=== PATIENT | male | born 1975 | race Two or more races ===

== ENCOUNTER 2024-10-09 04:50 | Inpatient (IN) | payer BC ==
[~2024-10-09] VITALS: Ht 175.3 cm; Wt 106.0 kg
[2024-10-09 05:30] LABS: Urine Bacteria None Seen /hpf (None Seen)
[2024-10-09 05:35] LABS: Urine Blood 1+ /uL (Negative); Urine Clarity Clear (Clear); Urine Color Light-Yellow (Yellow); Urine Protein, UAD TRACE (Negative); Urine Specific Gravity 1.023 (1.001-1.035); Urine Urobilinogen Normal (Negative); Urine WBC 1 /hpf (0 - 3)
[2024-10-09 06:51] LABS: Alanine Aminotransferase 38 U/L (7-40); Albumin 4.5 g/dL (3.2-4.8); Alkaline Phosphatase 108 U/L (46-116); Aspartate Aminotransferase 23 U/L (13-40); BUN/Creatinine Ratio 9.4 (10.0-20.0); Blood Urea Nitrogen 15 mg/dL (9-23); Calcium 9.8 mg/dL (8.7-10.4); Chloride 105 mmol/L (98-107); Glucose 146 mg/dL (74-106); Lipase 41 U/L (12-53); Potassium 3.8 mmol/L (3.5-5.1); Sodium 141 mmol/L (136-145)
[2024-10-09 06:52] LABS: Bilirubin, Total 0.7 mg/dL (0.2-1.0); Total Protein 7.2 g/dL (5.7-8.2)
[2024-10-09 07:02] LABS: Basophils # (auto) 0 10 ^3/uL (0-0.2); Basophils % (auto) 0.2 % (0.0-2.0); Eosinophils # (auto) 0 10 ^3/uL (0-0.8); Eosinophils % (auto) 0.1 % (0.0-7.0); Hematocrit 42.4 % (41.0-53.0); Hemoglobin 14.7 g/dL (13.5-17.5); Lymphocytes # (auto) 0.9 10 ^3/uL (0.4-5.4); Lymphocytes % (auto) 6.8 % (10.0-50.0); Mean Corpuscular Hemoglobin 31.7 pg (28.0-32.0); Mean Corpuscular Hgb Conc. 34.7 g/dL (32.0-36.0); Mean Corpuscular Volume 91.5 fL (80.0-100.0); Monocytes # (auto) 0.5 10 ^3/uL (0-1.3); Monocytes % (auto) 3.7 % (0.0-12.0); Neutrophils # (auto) 11.6 10 ^3/uL (1.6-8.6); Neutrophils % (auto) 89.2 % (37.0-80.0); Nucleated Red Blood Cells % 0.1 %; Platelet Count (auto) 275 10^3/uL (140-450); Red Blood Cells 4.64 10^6/uL (4.5-5.90); Red Cell Distribution Width 13.5 % (11.8-14.3)
--- NOTE | 2024-10-09 07:19 | ED.PDOC ---
GI ASSESSMENT HPI Comments 49-year-old male presents with a chief complaint of abdominal pain x onset yesterday. Patient states that his abdominal pain is localized to his LLQ, radiates across his abdomen to his right side and testicle area, describes as sharp/cramping, and rates his pain a 8/10. Patient denies any nausea, vomiting, or diarrhea with his abdominal pain. Patient denies any rectal bleeding as well. Patient mentions that he took some Pepto Bismol and had some relief of symptoms. Patient denies any urinary symptoms at this time. Chief Complaint: Abdominal Pain Time Seen by MD: 06:43 Reviewed Notes: Medications, Allergies Allergies: Coded Allergies: NO KNOWN ALLERGIES (Unverified , 10/09/24) Information Source: Patient Mode of Arrival: Ambulatory Timing: Hours Duration: Since onset Prehospital treatment: None Quality: Cramping Vomitus: None Stool: Normal Severity: Moderate Recent: None Recent Hx of: None Pain Location: Diffuse, LLQ Past Medical History PAST MEDICAL HISTORY: DM Surgical History: Denies all surgeries Family History Family History: Reviewed,noncontributory to illness Social History Smoker: Non-Smoker Alcohol: Denies ETOH Use Drugs: Denies Drug Use Lives In: Home Constitutional: denies: chills, diaphoresis, fatigue, fever, malaise, sweats, weakness, others EENTM: denies: blurred vision, double vision, ear bleeding, ear discharge, ear drainage, ear pain, ear ringing, eye pain, eye redness, hearing loss, mouth pain, mouth swelling, nasal discharge, nose bleeding, nose congestion, nose pain, photophobia, tearing, throat pain, throat swelling, voice changes, others Respiratory: denies: cough, hemoptysis, orthopnea, SOB at rest, shortness of breath, SOB with excertion, stridor, wheezing, others Cardiovascular: denies: chest pain, dizzy spells, diaphoresis, Dyspnea on exertion, edema, irregular heart beat, left arm pain, lightheadedness, palpitations, PND, syncope, others Gastrointestinal: reports: abdominal pain; denies: abdomen distended, blood streaked bowels, constipated, diarrhea, dysphagia, difficulty swallowing, hematemesis, melena, nausea, poor appetite, poor fluid intake, rectal bleeding, rectal pain, vomiting, others Genitourinary: denies: burning, dysuria, flank pain, frequency, hematuria, incontinence, penile discharge, penile sore, pain, testicle pain, testicle swelling, urgency, others Neurological: denies: dizziness, fainting, headache, left sided numbness, left sided weakness, numbness, paresthesia, pre-existing deficit, right sided numbness, right sided weakness, seizure, speech problems, tingling, tremors, weakness, others Musculoskeletal: denies: back pain, gout, joint pain, joint swelling, muscle pain, muscle stiffness, neck pain, others Integumetry: denies: bruises, change in color, change in hair/nails, dryness, laceration, lesions, lumps, rash, wounds, others Allergic/Immunocompromised: denies: Difficulty Healing, Frequent Infections, Hives, Itching, others Hematologic/Lymphatic: denies: anemia, blood clots, easy bleeding, easy bruising, swollen glands, others Endocrine: denies: excessive hunger, excessive sweating, excessive thirst, excessive urination, flushing, intolerance to cold, intolerance to heat, unexplained weight gain, unexplained weight loss, others Psychiatric: denies: anxiety, bipolar disorder, depression, hopeless, panic disorder, schizophrenia, sleepless, suicidal, others All Other Systems: Reviewed and Negative Physical Exam General Appearance: No Apparent Distress, Normal HEENT: Normal ENT Inspection, Pharynx Normal, TMs Normal Neck: Full Range of Motion, Non-Tender, Normal, Normal Inspection Respiratory: Chest Non-Tender, Lungs Clear, No Accessory Muscle Use, No Respiratory Distress, Normal Breath Sounds Cardiovascular: No Edema, No JVD, No Murmur, No Gallop, Normal Peripheral Pulses, Regular Rate/Rhythm Breast Exam: Deferred Gastrointestinal: No Organomegaly, Non Tender, No Pulsatile Mass, Normal Bowel Sounds, Soft Genitalia: Deferred Pelvic: Deferred Rectal: Deferred Extremities: No calf tenderness, Normal capillary refill, Normal inspection, Normal range of motion, Non-tender, No pedal edema Musculoskeletal : Apperance: Normal Neurologic: Alert, department of soci[employer] chair II-XII nml as Tested, No Motor Deficits, Normal Affect, Normal Mood, No Sensory Deficits Cerebellar Function: Normal Reflexes: Normal Skin: Dry, Normal Color, Warm Lymphatic: No Adenopathy Was a procedure done? Was a procedure done?: No GI differential Dx Differential Diagnosis: Cholecystitis, Gastritis/PUD, Gastroenteritis, Hepatitis, Inflammatory BD, UTI, Urolithiasis, Dehydration, Diabetes/ DKA, Electrolyte Imbalance, Viral, Hypovolemia, Malnutrition, Anemia X-Ray, Labs, Meds, VS Vital Signs Date Time Temp Pulse Resp B/P (MAP) Pulse Ox O2 Delivery O2 Flow Rate FiO2 10/09/24 07:36 70 17 155/64 10/09/24 07:20 17 96 Room Air* 0 21 10/09/24 07:20 98.3 70 17 153/88 (109) 96 98.3 10/09/24 04:50 98.1 70 18 154/91 (112) 100 Lab Test 10/09/24 05:45 10/09/24 05:00 Range/Units White Blood Count 13.0 H 4.4-10.8 10^3/uL Red Blood Count 4.64 4.5-5.90 10^6/uL Hemoglobin 14.7 13.5-17.5 g/dL Hematocrit 42.4 41.0-53.0 % Mean Corpuscular Volume 91.5 80.0-100.0 fL Mean Corpuscular Hemoglobin 31.7 28.0-32.0 pg Mean Corpuscular Hemoglobin Concent 34.7 32.0-36.0 g/dL Red Cell Distribution Width 13.5 11.8-14.3 % Platelet Count 275 140-450 10^3/uL Mean Platelet Volume 8.7 6.9-10.8 fL Neutrophils (%) (Auto) 89.2 H 37.0-80.0 % Lymphocytes (%) (Auto) 6.8 L 10.0-50.0 % Monocytes (%) (Auto) 3.7 0.0-12.0 % Eosinophils (%) (Auto) 0.1 0.0-7.0 % Basophils (%) (Auto) 0.2 0.0-2.0 % Neutrophils # (Auto) 11.6 H 1.6-8.6 10 ^3/uL Lymphocytes # (Auto) 0.9 0.4-5.4 10 ^3/uL Monocytes # (Auto) 0.5 0-1.3 10 ^3/uL Eosinophils # (Auto) 0 0-0.8 10 ^3/uL Basophils # (Auto) 0 0-0.2 10 ^3/uL Nucleated Red Blood Cells 0.1 % Sodium Level 141 136-145 mmol/L Potassium Level 3.8 3.5-5.1 mmol/L Chloride Level 105 98-107 mmol/L Carbon Dioxide Level 26 20-31 mmol/L Anion Gap 10 5-15 Blood Urea Nitrogen 15 9-23 mg/dL Creatinine 1.60 H 0.700-1.30 mg/dL Glomerular Filtration Rate Calc 53 >90 mL/min BUN/Creatinine Ratio 9.4 L 10.0-20.0 Serum Glucose 146 H 74-106 mg/dL Calcium Level 9.8 8.7-10.4 mg/dL Total Bilirubin 0.7 0.2-1.0 mg/dL Aspartate Amino Transferase (AST) 23 13-40 U/L Alanine Aminotransferase (ALT) 38 7-40 U/L Alkaline Phosphatase 108 46-116 U/L Total Protein 7.2 5.7-8.2 g/dL Albumin 4.5 3.2-4.8 g/dL Lipase 41 12-53 U/L Urine Color Light-yellow Yellow Urine Clarity Clear Clear Urine pH 6.0 5.0-9.0 Urine Specific [place] 1.023 1.001-1.035 Urine Protein Trace H Negative Urine Ketones Negative Negative Urine Blood 1+ H Negative /uL Urine Nitrite Negative Negative Urine Bilirubin Negative Negative Urine Urobilinogen Normal Negative mg/dL Urine Leukocyte Esterase Negative Negative /uL Urine RBC 22 0 - 3 /hpf Urine WBC 1 0 - 3 /hpf Urine Squamous Epithelial Cells Few <5 /hpf Urine Bacteria None seen None Seen /hpf Urine Glucose Normal Normal mg/dL Current Medications Medications (Trade) Dose Ordered Sig/Thania Route Start Time Stop Time Status Last Admin Sodium Chloride 1,000 ml @ 1,000 mls/hr Q1H ONCE IV 10/09/24 07:00 10/09/24 07:59 DC 10/09/24 07:37 Ondansetron HCl (Zofran) 4 mg ONCE ONCE IV 10/09/24 07:00 10/09/24 07:01 DC 10/09/24 07:35 Tamsulosin HCl (Flomax) 0.4 mg ONCE ONCE PO 10/09/24 07:00 10/09/24 07:01 DC 10/09/24 08:01 Morphine Sulfate 4 mg ONCE ONCE IV 10/09/24 07:00 10/09/24 07:01 DC 10/09/24 07:36 Time of 1ST Reevaluation: 07:13 Reevaluation 1ST: Unchanged Patient Education/Counseling: Diagnosis, Treatment, Prognosis Family Education/Counseling: No Family Present Departure 1 Departure Time of Disposition: 08:08 (Patient presented with abdominal pain that was concerning for possible appendicits, gastritis, cholecystitis, colitis, gastroenteritis, sbo, or orther possible surgical emergency. Data: 1. I ordered and reviewed the result of at least 3 labs including a CBC, BMP, and Urinalysis. 2. I independently interpreted the following tests: CT Abdoment and Pelvis is concerning for obstructing renal colic with hydronephrosis .Risk:This patient has a high risk of morbidity due to further diagnostic testing or treatment and may suffer from an acute abdominal process disorder. Workup reveals Moderate left hydronephrosis with obstructing 4 mm calculus of the proximal left ureter and intractable abdominal pain and patient should be admitted for further workup. and possible expert consultation. ) Impression: Primary Impression: Renal colic on left side Additional Impressions: Hydronephrosis due to obstruction of ureter Intractable abdominal pain Disposition: 09 ADMITTED INPATIENT Admit to: Med Surg Condition: Serious Critical Care Note Critical Care Time?: Yes Critical care comment: Intractable abdominal pain Authorized and Performed by: Dale Giles MD Total critical care time: Approximately 33 minutes Due to a high probability of clinically significant, life threatening deterioration, the patient required my highest level of preparedness to intervene emergently and I personally spent this critical care time directly and personally managing the patient. This critical care time included obtaining a history; examining the patient; pulse oximetry; ordering and review of studies; arranging urgent treatment with development of a management plan; evaluation of patient's response to treatment; frequent reassessment; and, discussions with other providers. This critical care time was performed to assess and manage the high probability of imminent, life-threatening deterioration that could result in multi-organ failure. It was exclusive of separately billable procedures and treating other patients and teaching time. Please see my other sections and the rest of the note for further information on patient assessment and treatment. Stability Stability form required: No I personally scribed for DALE GILES MD ([email or web address]) on 10/09/24 at 07:19. Electronically submitted by Clint Vaughan ([email or web address]). DALE GILES MD Oct 09, 2024 07:19
[2024-10-09 07:20] VITALS: RESP 17; O2SAT 96
[2024-10-09] MEDS: ONDANSETRON HCL 4 MG/2 ML VIAL IV ONE (07:35)
[2024-10-09] MEDS: MORPHINE SULFATE 4 MG/ML SYR/VIAL IV ONE (07:36)
[2024-10-09] MEDS: TAMSULOSIN HYDROCHLORIDE 0.4 MG CAP PO ONE (07:36)
[2024-10-09] MEDS: SODIUM CHLORIDE 0.9% 1,000 ML IV ONE (07:37)
[2024-10-09 07:50] LABS: Anion Gap 10 (5-15); Carbon Dioxide 26 mmol/L (20-31)
--- NOTE | 2024-10-09 07:58 | DVH ---
CLINICAL INFORMATION: 49 years old, Male; left flank pain. TECHNIQUE: Axial CT images of the abdomen and pelvis were obtained without IV contrast. Coronal and sagittal reformatted images were obtained, reviewed, and stored. Evaluation of the parenchymal organs is limited without IV contrast. Evaluation of the bowel and mesentery is limited without oral contra st. All CT scans at this medical facility are performed using dose modulation techniques as appropria te to a performed exam including the following: Automated exposure control was utilized; adjustment o f the MA and/or KV according to patient size; and use of iterative reconstruction technique. CTDIvol = 16.04 mGy DLP = 1052.66 mGy-cm COMPARISON: None FINDINGS: Lung bases: Respiratory motion artifact limits evaluation. Mild atelectasis in the lung bases. Liver: Hepatic steatosis with areas of focal fatty sparing. Biliary: No calcified gallstones or biliary ductal dilatation. Spleen: Unremarkable. Pancreas: Grossly unremarkable in its noncontrast enhanced appearance. Adrenal glands: Unremarkable. No mass. Kidneys: Moderate left hydronephrosis and moderate left perinephric stranding, with obstructing 4 mm calculus in the proximal left ureter. No other renal or ureteral calculi visualized. Aorta/Vascular: No aneurysm or significant calcification. Retroperitoneum: No mass or lymphadenopathy. Bowel/mesentery: Nonspecific nondilated fluid-filled small bowel loops. No small bowel obstruction. A ppendix is visualized and appears unremarkable. Scattered colonic diverticula without adjacent infl ammatory changes to suggest diverticulitis. Pelvic organs: Grossly unremarkable. Bladder: Bladder is underdistended and not well evaluated. Abdominal wall: Moderate sized fat containing indirect left inguinal hernia. Bones: No acute fracture or suspicious intraosseous lesion. IMPRESSION: 1. Moderate left hydronephrosis with obstructing 4 mm calculus of the proximal left ureter. 2. No other renal or ureteral calculi are seen. 3. Nonspecific nondilated fluid-filled small bowel loops, may be seen with ileus or enteritis in the appropriate clinical setting. No small bowel obstruction. 4. Hepatic steatosis. 5. Moderate-sized fat containing indirect left inguinal hernia. 6. Additional findings as detailed above
[2024-10-09] MEDS: KETOROLAC TROMETH 30 MG/ML 1ML VIAL IV ONE (08:15)
--- NOTE | 2024-10-09 08:39 | DVHHP2 ---
History of Present Illness Reason for Visit: Abdominal pain History of Present Illness Justin De La Cruz is a 49YO M with a pmHx of DM who presents to the ED with abdominal and testicular pain x 1 day. Upon examination patient reports pain is in the LLQ which radiates to the epigastric area. Current pain reported after pain medications is 5/10. Patient also reports that he was unable to have a bowel movement due to the pain for 1 day. He reports he is compliant with his medications. Patient denies N/V/D, fever, chills, and shortness of breath. Endocrine: Diabetes Past Surgical History: Other Past Surgical History Right inguinal hernia repair Family History: DM (both mother and father) Smoke: No ALCOHOL: none Drugs: None Lives: with Family Domestic Violence: Neg Review of Systems Constitutional: No: Fever, Chills, Sweats, Weakness, Malaise, Other Eyes: No: Pain, Vision change, Conjunctivae inflammation, Eyelid inflammation, Other, Redness ENT: No: Ear pain, Ear discharge, Nose pain, Nose discharge, Nose congestion, Mouth pain, Mouth swelling, Throat pain, Throat swelling, Other Respiratory: No: Cough, Dry, Shortness of breath, SOB with excertion, Wheezing, Hemoptysis, Pleuritic Pain, Sputum, Wheezing, Other Cardiovascular: No: Chest Pain, Palpitations, Orthopnea, Paroxysmal Noc. Dyspnea, Edema, Lt Headedness, Other Gastrointestinal: Abdominal Pain; No: Nausea, Vomiting, Diarrhea, Constipation, Melena, Hematochezia, Other Genitourinary: No Dysuria, No Frequency, No Incontinence, No Hematuria, No Retention, No Other Musculoskeletal: No: other, neck pain, shoulder pain, arm pain, back pain, hand pain, leg pain, foot pain Skin: No: Rash, Lesions, Jaundice, Bruising, Other Neurological: No: Weakness, Numbness, Incoordination, Change in speech, Confusion, Seizures, Other Other testicular pain Allergies: Coded Allergies: NO KNOWN ALLERGIES (Unverified , 10/09/24) Exam Vital Signs Vital Signs Date Time Temp Pulse Resp B/P (MAP) Pulse Ox O2 Delivery O2 Flow Rate FiO2 10/09/24 08:06 69 18 150/61 10/09/24 07:20 96 Room Air* 0 21 10/09/24 07:20 98.3 98.3 General Appearance: Alert, Oriented X3, Cooperative, No acute distress HEENT: Atraumatic, PERRLA, EOMI, Mucous membr. moist/pink Respiratory: Clear to auscultation, Normal air movement Cardiovascular: Regular rate, Normal S1, Normal S2, No murmurs Abdominal: Soft Extremities: No clubbing, No cyanosis, No edema, Normal pulses, No tenderness/swelling Skin: No rashes, No breakdown, No significant lesion Neuro: Normal gait, Normal speech, Strength at 5/5 X4 ext, Normal tone, Sensation intact Psych/Mental Status: Mental status NL, Mood NL Labs/Xrays Labs Test 10/09/24 05:45 10/09/24 05:00 Range/Units White Blood Count 13.0 H 4.4-10.8 10^3/uL Red Blood Count 4.64 4.5-5.90 10^6/uL Hemoglobin 14.7 13.5-17.5 g/dL Hematocrit 42.4 41.0-53.0 % Mean Corpuscular Volume 91.5 80.0-100.0 fL Mean Corpuscular Hemoglobin 31.7 28.0-32.0 pg Mean Corpuscular Hemoglobin Concent 34.7 32.0-36.0 g/dL Red Cell Distribution Width 13.5 11.8-14.3 % Platelet Count 275 140-450 10^3/uL Mean Platelet Volume 8.7 6.9-10.8 fL Neutrophils (%) (Auto) 89.2 H 37.0-80.0 % Lymphocytes (%) (Auto) 6.8 L 10.0-50.0 % Monocytes (%) (Auto) 3.7 0.0-12.0 % Eosinophils (%) (Auto) 0.1 0.0-7.0 % Basophils (%) (Auto) 0.2 0.0-2.0 % Neutrophils # (Auto) 11.6 H 1.6-8.6 10 ^3/uL Lymphocytes # (Auto) 0.9 0.4-5.4 10 ^3/uL Monocytes # (Auto) 0.5 0-1.3 10 ^3/uL Eosinophils # (Auto) 0 0-0.8 10 ^3/uL Basophils # (Auto) 0 0-0.2 10 ^3/uL Nucleated Red Blood Cells 0.1 % Sodium Level 141 136-145 mmol/L Potassium Level 3.8 3.5-5.1 mmol/L Chloride Level 105 98-107 mmol/L Carbon Dioxide Level 26 20-31 mmol/L Anion Gap 10 5-15 Blood Urea Nitrogen 15 9-23 mg/dL Creatinine 1.60 H 0.700-1.30 mg/dL Glomerular Filtration Rate Calc 53 >90 mL/min BUN/Creatinine Ratio 9.4 L 10.0-20.0 Serum Glucose 146 H 74-106 mg/dL Calcium Level 9.8 8.7-10.4 mg/dL Total Bilirubin 0.7 0.2-1.0 mg/dL Aspartate Amino Transferase (AST) 23 13-40 U/L Alanine Aminotransferase (ALT) 38 7-40 U/L Alkaline Phosphatase 108 46-116 U/L Total Protein 7.2 5.7-8.2 g/dL Albumin 4.5 3.2-4.8 g/dL Lipase 41 12-53 U/L Urine Color Light-yellow Yellow Urine Clarity Clear Clear Urine pH 6.0 5.0-9.0 Urine Specific [place] 1.023 1.001-1.035 Urine Protein Trace H Negative Urine Ketones Negative Negative Urine Blood 1+ H Negative /uL Urine Nitrite Negative Negative Urine Bilirubin Negative Negative Urine Urobilinogen Normal Negative mg/dL Urine Leukocyte Esterase Negative Negative /uL Urine RBC 22 0 - 3 /hpf Urine WBC 1 0 - 3 /hpf Urine Squamous Epithelial Cells Few <5 /hpf Urine Bacteria None seen None Seen /hpf Urine Glucose Normal Normal mg/dL CT Abdomen and Pelvis FINDINGS: Lung bases: Respiratory motion artifact limits evaluation. Mild atelectasis in the lung bases. Liver: Hepatic steatosis with areas of focal fatty sparing. Biliary: No calcified gallstones or biliary ductal dilatation. Spleen: Unremarkable. Pancreas: Grossly unremarkable in its noncontrast enhanced appearance. Adrenal glands: Unremarkable. No mass. Kidneys: Moderate left hydronephrosis and moderate left perinephric stranding, with obstructing 4 mm calculus in the proximal left ureter. No other renal or ureteral calculi visualized. Aorta/Vascular: No aneurysm or significant calcification. Retroperitoneum: No mass or lymphadenopathy. Bowel/mesentery: Nonspecific nondilated fluid-filled small bowel loops. No small bowel obstruction. Appendix is visualized and appears unremarkable. Scattered colonic diverticula without adjacent inflammatory changes to suggest diverticulitis. Pelvic organs: Grossly unremarkable. Bladder: Bladder is underdistended and not well evaluated. Abdominal wall: Moderate sized fat containing indirect left inguinal hernia. Bones: No acute fracture or suspicious intraosseous lesion. IMPRESSION: 1. Moderate left hydronephrosis with obstructing 4 mm calculus of the proximal left ureter. 2. No other renal or ureteral calculi are seen. 3. Nonspecific nondilated fluid-filled small bowel loops, may be seen with ileus or enteritis in the appropriate clinical setting. No small bowel obstruction. 4. Hepatic steatosis. 5. Moderate-sized fat containing indirect left inguinal hernia. 6. Additional findings as detailed above Renal US CLINICAL HISTORY: Hydronephrosis with calculus obstructing ureter FINDINGS: The right kidney measures 11.2 cm in length. The left kidney measures 12.0 cm. There is a 6 mm calculus in the midpole of the right kidney. There is no right renal hydronephrosis. There is mild left renal hydronephrosis. The bladder appears within normal limits with volume measuring 350 cc. The calculated prostate volume is 29 cc. IMPRESSION: 1. 6 mm nonobstructive right midpole renal calculus. 2. Mild left renal hydronephrosis. There is no sonographic evidence of nephrolithiasis. Assessment/Plan Assessment/Plan Assessment: Left hydronephrosis with obstructing calculus in ureter Left inguinal hernia Acute on chronic kidney disease Hepatic steatosis Hx of DM Right inguinal hernia repair 2021 Plan: Admit to med surg IVf IV Abx Diet as tolerated Urology consult Pain management Antiemetics Flomax ISS and accuchecks CT A/P noted Renal US HgbA1C 5.9% Reconciled home medications Discussed plan of care with patient and nurse Plan discussed with: Patient, Other () Problem List: (1) Hydronephrosis due to obstruction of ureter (2) Intractable abdominal pain Date of Service: Oct 09, 2024 Billing Provider: LUNA AMAYA Common Visit Codes: [id number] INP/OBS CARE (MOD) LUNA AMAYA Oct 09, 2024 08:39
--- NOTE | 2024-10-09 08:40 | DVHINCON2 ---
Date of service: Oct 09, 2024 Referring Physician hospitalist Reason for Consultation ureteral stone History of Present Illness History Source: Patient, RN Notes, MD Notes, Old Records Exam Limitations: No limitations HPI 49-year-old male presents with a chief complaint of abdominal pain x onset yesterday. Patient states that his abdominal pain is localized to his LLQ, radiates across his abdomen to his right side and testicle area, describes as sharp/cramping, and rates his pain a 8/10. Patient denies any nausea, vomiting, or diarrhea with his abdominal pain. Patient denies any rectal bleeding as well. Patient mentions that he took some Pepto Bismol and had some relief of symptoms. Patient denies any urinary symptoms at this time. after morphine and toradol patient is reportsing relief. He has no urinary problems Review of Systems Genitourinary: Pain H&P Exam Vital Signs Vital Signs Date Time Temp Pulse Resp B/P (MAP) Pulse Ox O2 Delivery O2 Flow Rate FiO2 10/09/24 08:06 69 18 150/61 10/09/24 07:20 96 Room Air* 0 21 10/09/24 07:20 98.3 98.3 General Appeara: Well developed, Well nourished, Normal Appearance Pulmonary/Respiratory: Normal inspection, Normal breath sounds, Chest non- tender, Lungs clear Cardiovascular/Chest: Normal inspection, Regular rate, Normal Rhythm Neuro/Mental St: Alert, Oriented Appearance: Appropriate appearance, Appropriate insight Skin Exam: Normal inspection, Normal color, Warm/dry Labs/Xrays [place] [id number] Ph: [phone] DIAGNOSTIC IMAGING Diagnostic Imaging Report : [id number] Signed PATIENT: IVAN ERVINACCT: [id number] UNIT: [id number] : 1975 LOC: ER ROOM / BED: / AGE / SEX: 49 / M ADM STATUS: REG ER SERVICE 5 ORDERING PHYSICIAN: DALE DELGADO MD PROCEDURE(s): ABPL - CT AB PEL WO CON-NO ORAL OR IV REASON: left flank pain ORDER NUMBER(s): [id number], ACCESSION NUMBER(s): [id number] CLINICAL INFORMATION: 49 years old, Male; left flank pain. TECHNIQUE: Axial CT images of the abdomen and pelvis were obtained without IV contrast. Coronal and sagittal reformatted images were obtained, reviewed, and stored. Evaluation of the parenchymal organs is limited without IV contrast. Evaluation of the bowel and mesentery is limited without oral contrast. All CT scans at this medical facility are performed using dose modulation techniques as appropriate to a performed exam including the following: Automated exposure control was utilized; adjustment of the MA and/or KV according to patient size; and use of iterative reconstruction technique. CTDIvol = 16.04 mGy DLP = 1052.66 mGy-cm COMPARISON: None FINDINGS: Lung bases: Respiratory motion artifact limits evaluation. Mild atelectasis in the lung bases. Liver: Hepatic steatosis with areas of focal fatty sparing. Biliary: No calcified gallstones or biliary ductal dilatation. Spleen: Unremarkable. Pancreas: Grossly unremarkable in its noncontrast enhanced appearance. Adrenal glands: Unremarkable. No mass. Kidneys: Moderate left hydronephrosis and moderate left perinephric stranding, with obstructing 4 mm calculus in the proximal left ureter. No other renal or ureteral calculi visualized. Aorta/Vascular: No aneurysm or significant calcification. Retroperitoneum: No mass or lymphadenopathy. Bowel/mesentery: Nonspecific nondilated fluid-filled small bowel loops. No small bowel obstruction. Appendix is visualized and appears unremarkable. Scattered colonic diverticula without adjacent inflammatory changes to suggest diverticulitis. Pelvic organs: Grossly unremarkable. Bladder: Bladder is underdistended and not well evaluated. Abdominal wall: Moderate sized fat containing indirect left inguinal hernia. Bones: No acute fracture or suspicious intraosseous lesion. IMPRESSION: 1. Moderate left hydronephrosis with obstructing 4 mm calculus of the proximal left ureter. 2. No other renal or ureteral calculi are seen. 3. Nonspecific nondilated fluid-filled small bowel loops, may be seen with ileus or enteritis in the appropriate clinical setting. No small bowel obstruction. 4. Hepatic steatosis. 5. Moderate-sized fat containing indirect left inguinal hernia. 6. Additional findings as detailed above ATED BY: ROLAND EASLEY DO DICTATED DATE/TIME: 10/09/24 0756 SIGNED BY: ROLAND EASLEY DO SIGNED DATE/TIME: 10/09/24 0756 CC: Labs Test 10/09/24 05:45 10/09/24 05:00 Range/Units White Blood Count 13.0 H 4.4-10.8 10^3/uL Red Blood Count 4.64 4.5-5.90 10^6/uL Hemoglobin 14.7 13.5-17.5 g/dL Hematocrit 42.4 41.0-53.0 % Mean Corpuscular Volume 91.5 80.0-100.0 fL Mean Corpuscular Hemoglobin 31.7 28.0-32.0 pg Mean Corpuscular Hemoglobin Concent 34.7 32.0-36.0 g/dL Red Cell Distribution Width 13.5 11.8-14.3 % Platelet Count 275 140-450 10^3/uL Mean Platelet Volume 8.7 6.9-10.8 fL Neutrophils (%) (Auto) 89.2 H 37.0-80.0 % Lymphocytes (%) (Auto) 6.8 L 10.0-50.0 % Monocytes (%) (Auto) 3.7 0.0-12.0 % Eosinophils (%) (Auto) 0.1 0.0-7.0 % Basophils (%) (Auto) 0.2 0.0-2.0 % Neutrophils # (Auto) 11.6 H 1.6-8.6 10 ^3/uL Lymphocytes # (Auto) 0.9 0.4-5.4 10 ^3/uL Monocytes # (Auto) 0.5 0-1.3 10 ^3/uL Eosinophils # (Auto) 0 0-0.8 10 ^3/uL Basophils # (Auto) 0 0-0.2 10 ^3/uL Nucleated Red Blood Cells 0.1 % Sodium Level 141 136-145 mmol/L Potassium Level 3.8 3.5-5.1 mmol/L Chloride Level 105 98-107 mmol/L Carbon Dioxide Level 26 20-31 mmol/L Anion Gap 10 5-15 Blood Urea Nitrogen 15 9-23 mg/dL Creatinine 1.60 H 0.700-1.30 mg/dL Glomerular Filtration Rate Calc 53 >90 mL/min BUN/Creatinine Ratio 9.4 L 10.0-20.0 Serum Glucose 146 H 74-106 mg/dL Calcium Level 9.8 8.7-10.4 mg/dL Total Bilirubin 0.7 0.2-1.0 mg/dL Aspartate Amino Transferase (AST) 23 13-40 U/L Alanine Aminotransferase (ALT) 38 7-40 U/L Alkaline Phosphatase 108 46-116 U/L Total Protein 7.2 5.7-8.2 g/dL Albumin 4.5 3.2-4.8 g/dL Lipase 41 12-53 U/L Urine Color Light-yellow Yellow Urine Clarity Clear Clear Urine pH 6.0 5.0-9.0 Urine Specific [place] 1.023 1.001-1.035 Urine Protein Trace H Negative Urine Ketones Negative Negative Urine Blood 1+ H Negative /uL Urine Nitrite Negative Negative Urine Bilirubin Negative Negative Urine Urobilinogen Normal Negative mg/dL Urine Leukocyte Esterase Negative Negative /uL Urine RBC 22 0 - 3 /hpf Urine WBC 1 0 - 3 /hpf Urine Squamous Epithelial Cells Few <5 /hpf Urine Bacteria None seen None Seen /hpf Urine Glucose Normal Normal mg/dL Assessment/Plan Problem List: (1) Renal colic on left side (2) Intractable abdominal pain (3) Hydronephrosis due to obstruction of ureter Plan expulsive measures renal US in the morning pain control strain urine encourage fluids Plan discussed with: Other GENE PHILLIPS NP Oct 09, 2024 08:40
[2024-10-09] MEDS ORDERED: ONDANSETRON HCL 4 MG/2 ML VIAL IV PRN (09:00)
[2024-10-09] MEDS ORDERED: MORPHINE SULFATE INJ 2 MG/ml SYRG IV PRN (09:00)
[2024-10-09] MEDS ORDERED: DOCUSATE SOD 100 MG CAP PO PRN (09:00)
[2024-10-09] MEDS ORDERED: DEXTROSE (50%) 50ML SYRG IV PRN (09:00)
[2024-10-09] MEDS ORDERED: HYDROcodone-ACET 5/325MG TAB PO PRN (09:00)
[2024-10-09] MEDS ORDERED: ACETAMINOPHEN 325 MG TAB PO PRN (09:00)
[2024-10-09] MEDS: SODIUM CHLORIDE 0.9% 1,000 ML IV SCH (09:49)
[2024-10-09 10:44] VITALS: BP 142/84; PULSE 77; PULSE 82; RESP 18; TEMP 98.1; O2SAT 97; O2SAT 98
[2024-10-09] MEDS ORDERED: METF-372 PO (11:09)
[2024-10-09] MEDS: ACCU-CHEK COMFORT CURVE STRIP VI SCH (12:00)
[2024-10-09] MEDS: InsuLIN REG 1unit/0.01ml Soln (100units/ml) SC SCH (12:06)
[2024-10-09 12:19] VITALS: BP 135/77; PULSE 67; RESP 20; TEMP 98.4; O2SAT 99
--- NOTE | 2024-10-09 15:41 | DVH ---
RENAL ULTRASOUND CLINICAL HISTORY: Hydronephrosis with calculus obstructing ureter TECHNIQUE: Multiple ultrasound images of the kidneys and bladder were obtained. COMPARISON: None FINDINGS: The right kidney measures 11.2 cm in length. The left kidney measures 12.0 cm. There is a 6 mm calcul us in the midpole of the right kidney. There is no right renal hydronephrosis. There is mild left re nal hydronephrosis. The bladder appears within normal limits with volume measuring 350 cc. The calculated prostate volum e is 29 cc. IMPRESSION: 1. 6 mm nonobstructive right midpole renal calculus. 2. Mild left renal hydronephrosis. There is no sonographic evidence of nephrolithiasis. HS:Y
[2024-10-09 17:11] VITALS: BP 149/70; PULSE 80; RESP 16; TEMP 98.3; O2SAT 95
[2024-10-09 18:53] VITALS: BP 154/102; PULSE 66; RESP 20; TEMP 98.3; O2SAT 98
[2024-10-10 01:09] VITALS: BP 133/75; PULSE 75; RESP 18; TEMP 98.4; O2SAT 97
[2024-10-10 03:20] VITALS: BP 137/83; PULSE 73; RESP 18; TEMP 98.4; O2SAT 97
[2024-10-10 05:00] VITALS: BP 140/82; PULSE 71; RESP 20; TEMP 98; O2SAT 95
[2024-10-10 06:30] LABS: Alanine Aminotransferase 27 U/L (7-40); Albumin 3.5 g/dL (3.2-4.8); Alkaline Phosphatase 79 U/L (46-116); Anion Gap 7 (5-15); BUN/Creatinine Ratio 13.4 (10.0-20.0); Blood Urea Nitrogen 13 mg/dL (9-23); Carbon Dioxide 25 mmol/L (20-31); Chloride 108 mmol/L (98-107); Glucose 101 mg/dL (74-106); Potassium 3.6 mmol/L (3.5-5.1); Sodium 140 mmol/L (136-145)
[2024-10-10 06:31] LABS: Aspartate Aminotransferase 14 U/L (13-40); Bilirubin, Total 0.8 mg/dL (0.2-1.0)
[2024-10-10 06:46] LABS: Basophils # (auto) 0 10 ^3/uL (0-0.2); Basophils % (auto) 0.6 % (0.0-2.0); Eosinophils # (auto) 0.1 10 ^3/uL (0-0.8); Hemoglobin 13.5 g/dL (13.5-17.5); Lymphocytes # (auto) 1.8 10 ^3/uL (0.4-5.4); Lymphocytes % (auto) 24.1 % (10.0-50.0); Mean Corpuscular Hgb Conc. 34.7 g/dL (32.0-36.0); Mean Corpuscular Volume 92.1 fL (80.0-100.0); Monocytes # (auto) 0.6 10 ^3/uL (0-1.3); Monocytes % (auto) 8.8 % (0.0-12.0); Neutrophils # (auto) 4.8 10 ^3/uL (1.6-8.6); Neutrophils % (auto) 64.5 % (37.0-80.0); Nucleated Red Blood Cells % 0.1 %; Platelet Count (auto) 235 10^3/uL (140-450); Red Blood Cells 4.23 10^6/uL (4.5-5.90); Red Cell Distribution Width 13.4 % (11.8-14.3); White Blood Cell 7.4 10^3/uL (4.4-10.8)
[2024-10-10] MEDS: cefTRIAXone 1GM/50ML D5W 50 ML IV SCH (08:36)
[2024-10-10 09:00] VITALS: BP 100/59; PULSE 66; RESP 17; TEMP 98.2; O2SAT 99
[2024-10-10] MEDS ORDERED: NITR-87 PO (11:49)
[2024-10-10] MEDS ORDERED: TAMS-35 PO (11:49)
--- NOTE | 2024-10-10 11:55 | DVHDS2 ---
Discharge Summary Date of Admission Oct 09, 2024 at 08:58 Date of Discharge: Oct 10, 2024 Admitting Diagnosis Obstructive uropathy Labs/Diagnostic Data: Laboratory Results Test 10/10/24 05:30 10/10/24 05:22 10/09/24 05:45 10/09/24 05:00 White Blood Count 7.4 10^3/uL (4.4-10.8) Red Blood Count 4.23 10^6/uL (4.5-5.90) Hemoglobin 13.5 g/dL (13.5-17.5) Hematocrit 39.0 % (41.0-53.0) Mean Corpuscular Volume 92.1 fL (80.0-100.0) Mean Corpuscular Hemoglobin 32.0 pg (28.0-32.0) Mean Corpuscular Hemoglobin Concent 34.7 g/dL (32.0-36.0) Red Cell Distribution Width 13.4 % (11.8-14.3) Platelet Count 235 10^3/uL (140-450) Mean Platelet Volume 8.3 fL (6.9-10.8) Neutrophils (%) (Auto) 64.5 % (37.0-80.0) Lymphocytes (%) (Auto) 24.1 % (10.0-50.0) Monocytes (%) (Auto) 8.8 % (0.0-12.0) Eosinophils (%) (Auto) 2.0 % (0.0-7.0) Basophils (%) (Auto) 0.6 % (0.0-2.0) Neutrophils # (Auto) 4.8 10 ^3/uL (1.6-8.6) Lymphocytes # (Auto) 1.8 10 ^3/uL (0.4-5.4) Monocytes # (Auto) 0.6 10 ^3/uL (0-1.3) Eosinophils # (Auto) 0.1 10 ^3/uL (0-0.8) Basophils # (Auto) 0 10 ^3/uL (0-0.2) Nucleated Red Blood Cells 0.1 % Sodium Level 140 mmol/L (136-145) Potassium Level 3.6 mmol/L (3.5-5.1) Chloride Level 108 mmol/L (98-107) Carbon Dioxide Level 25 mmol/L (20-31) Anion Gap 7 (5-15) Blood Urea Nitrogen 13 mg/dL (9-23) Creatinine 0.97 mg/dL (0.700-1.30) Glomerular Filtration Rate Calc 96 mL/min (>90) BUN/Creatinine Ratio 13.4 (10.0-20.0) Serum Glucose 101 mg/dL (74-106) Calcium Level 9.0 mg/dL (8.7-10.4) Total Bilirubin 0.8 mg/dL (0.2-1.0) Aspartate Amino Transferase (AST) 14 U/L (13-40) Alanine Aminotransferase (ALT) 27 U/L (7-40) Alkaline Phosphatase 79 U/L (46-116) Total Protein 6.0 g/dL (5.7-8.2) Albumin 3.5 g/dL (3.2-4.8) POC Glucose 106 mg/dl (70-106) Hemoglobin A1c 5.9 % A1C (<5.7) Lipase 41 U/L (12-53) Urine Color Light-yellow (Yellow) Urine Clarity Clear (Clear) Urine pH 6.0 (5.0-9.0) Urine Specific [place] 1.023 (1.001-1.035) Urine Protein Trace (Negative) Urine Ketones Negative (Negative) Urine Blood 1+ /uL (Negative) Urine Nitrite Negative (Negative) Urine Bilirubin Negative (Negative) Urine Urobilinogen Normal mg/dL (Negative) Urine Leukocyte Esterase Negative /uL (Negative) Urine RBC 22 /hpf (0 - 3) Urine WBC 1 /hpf (0 - 3) Urine Squamous Epithelial Cells Few /hpf (<5) Urine Bacteria None seen /hpf (None Seen) Urine Glucose Normal mg/dL (Normal) Other Laboratory Tests 10/10/24 05:30 Brief Hx & Hospital Course: History of Present Illness Justin De La Cruz is a 49YO M with a pmHx of DM who presents to the ED with abdominal and testicular pain x 1 day. Upon examination patient reports pain is in the LLQ which radiates to the epigastric area. Current pain reported after pain medications is 5/10. Patient also reports that he was unable to have a bowel movement due to the pain for 1 day. He reports he is compliant with his medications. Patient denies N/V/D, fever, chills, and shortness of breath. Course of hospitalization: CT scan of abdomen and pelvis reveals obstructive left renal calculi in the ureter. Ultrasound performed afterwards reveals that the hydronephrosis to the left kidney has improved without any evidence of stone. Patient reports no longer having abdominal pain. He does report possibly passing his kidney stone when he urinated this morning. Also reports having residual hematuria. Patient was agreeable to be discharged home given his symptoms have improved. He will be continued on Flomax 0.5 mg p.o. daily x5 days given the patient has residual kidney stone to the right kidney. Patient will also be placed on Macrobid 100 mg p.o. twice a day next five days. He is instructed to continue all previous home medications and follow up with his PCP in 1-2 weeks. Physical exam General: Alert and Oriented x3. No acute distress. Well-nourished. Eyes: EOMI. Anicteric. HENT: Moist mucous membranes. Lungs: Clear to auscultation bilaterally. No accessory muscle use. Cardiovascular: Regular rate and rhythm. No murmur. No JVD. Abdomen: Soft, non-tender and non-distended. No palpable masses. Extremities: No edema. Non-tender. Skin: No rashes or lesions. Warm. Neurologic: No focal neurological deficits. CN II-XII grossly intact, but not individually tested. Psychiatric: Cooperative. Appropriate mood and affect. Total time spent with patient discussing and formulating plan of care: 35 minutes. This medical document was created using an electronic medical record system with [employer] dictation system. Although this document has been carefully reviewed, there may still be some phonetic and typographical errors. These areas are purely typographical due to imperfections of the software programs, and do not reflect any compromise in the patient's medical care. Consults/Reason for consult Urology: Obstructive uropathy Condition at Discharge: Fair Final Diagnosis/Problems List Obstructive uropathy Secondary Diagnosis: Leukocytosis, sirs without organ dysfunction UTI Diabetes mellitus Discharge Disposition: Home Discharge Instruct/Medications Diet: Consistent carbohydrate Activity: No Restrictions, As Tolerated Follow Up/Referral: Follow up with PCP in 1-2 weeks Medications: Tamsulosin 0.5 mg q.h.s. for five days Macrobid 100 mg p.o. b.i.d. x5 days 36 Discharge Statement: "Patient was advised to return to the ER or call 911 if any headaches, dizziness, shortness of breath, chest pain, abdominal pain, bleeding, fevers, or worsening of medical condition. Patient was counseled about treatment plan, medications, possible side effects, patientverbalized understanding. All questions were answered to the best of my ability. This discharge took greater then 30 minutes in planning, reviewing documentation, counseling the patient, and discussing with other team members." ASSESSMENT ASSESSMENT Assessment Obstructive uropathy Date of Service: Oct 10, 2024 Billing Provider: DALTON MARTINEZ NP Common Visit Codes: 70222-QAV/OBS DISCH DAY >30min DALTON MARTINEZ NP Oct 10, 2024 11:55
[2024-10-10 13:09] VITALS: BP 132/75; PULSE 72; RESP 17; TEMP 98.1; O2SAT 93
== END 2024-10-10 15:20 | disposition home or self-care (01) | DRG 690 ==
LOC: ER 04:50 → OVERFLOW 08:58 → CENTRAL 10-10 03:10
PROVIDERS: ATTEND Nurse Practitioner Acute Care
DX: N13.6 Pyonephrosis (principal); N20.1 Calculus of ureter; N17.9 Acute kidney failure, unspecified; E11.22 Type 2 diabetes mellitus with diabetic chronic kidney disease; N18.9 Chronic kidney disease, unspecified; K40.90 Unilateral inguinal hernia, without obstruction or gangrene, not specified as recurrent; K76.0 Fatty (change of) liver, not elsewhere classified; Z79.899 Other long term (current) drug therapy
CPT/HCPCS: 36415; 74176; 76775; 80053; 81001; 82962; 83036; 83690; 85025; 99291; G0378; J1815; J1885; J2405